=== PATIENT | male | born 2000 | race African-American/Black ===

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

== ENCOUNTER 2021-06-26 13:10 | Emergency (ER) | payer OTHER ==
[~2021-06-26] VITALS: Ht 175.3 cm; Wt 62.3 kg
[~2021-06-26 13:10] MED LIST: ACET-683 PO; NAPR-837 PO
--- NOTE | 2021-06-26 14:29 | REP ---
INDICATION: CP. COMPARISON: None. TECHNIQUE: Upright PA and lateral images of the chest were obtained. FINDINGS: The lungs are clear. The heart borders mediastinum and pulmonary vascular pattern are normal. The upper abdominal bowel gas pattern is normal. IMPRESSION: No evidence of acute cardiopulmonary pathology. <Electronically signed by Jr Gaviria > 06/26/21 1424
[2021-06-26 14:48] LABS: CK-MB VALUE MASS 1.4 NG/ML (<3.6); CPK CREATINE PHOSPHOKINASE 228 U/L (39-308); MB/CK RELATIVE INDEX 0.61 (< OR =4); TROPONIN I < 0.02 NG/ML (< 0.10)
[2021-06-26 15:14] VITALS: BP 116/72
--- NOTE | 2021-06-27 16:46 | ECGEPIP ---
[facility] - ED Test Date: 2021-06-26 Pat Name: CHAZ DAVILA Department: Room: - Gender: Male Research Assistant Member: ZOHREH : 2000 Requested By: Darya Barreto Order Number: [id number] Reading MD: Darya Barreto Measurements Intervals [place] Rate: 63 P: 60 RI: 192 QRS: 60 QRSD: 82 T: 32 QT: 386 QTc: 395 Interpretive Statements Normal sinus rhythm No prior Electronically Signed on 06-27-2021 16:46:09 EDT by Darya Barreto
== END 2021-06-26 15:12 | disposition home or self-care (01) ==
LOC: M ED 13:10
DX: R07.9 Chest pain, unspecified (principal); R06.02 Shortness of breath

== ENCOUNTER 2021-07-14 12:11 | Emergency (ER) | payer OTHER ==
[~2021-07-14] VITALS: Ht 175.3 cm; Wt 61.4 kg
--- NOTE | 2021-07-14 12:47 | REP ---
INDICATION: CHEST PAIN. COMPARISON: 06/26/2021. TECHNIQUE: Single portable AP view of the chest was performed. FINDINGS: There is no acute infiltrate or pulmonary edema. Lungs are clear. The heart is not significantly enlarged. The mediastinal silhouette is unremarkable. The visualized osseous structures are intact. IMPRESSION: No acute pulmonary disease. <Electronically signed by Agus Webber > 07/14/21 [id number]
[2021-07-14 12:59] LABS: BASO % 0.7 % (0.0-1.0); EOS % 0.3 % (0.0-3.0); HEMATOCRIT 45.7 % (42.0-52.0); HEMOGLOBIN 15.9 g/dl (13.5-17.5); LYMPH # 1.2 10^3/uL (1.5-5.0); LYMPH % 20.3 % (24.0-44.0); MEAN CORPUSCULAR HEMOGLOBIN 26.1 pg (27.0-33.0); MEAN CORPUSCULAR HGB CONC 34.8 g/dl (32.0-36.5); MONO # 0.6 10^3/uL (0.0-0.8); MONO % 10.4 % (2.0-8.0); NEUTROPHILS # 4.1 10^3/uL (1.5-8.5); NEUTROPHILS % 68.1 % (36.0-66.0); PLATELET COUNT, AUTOMATED 164 10^3/uL (150-450); RED BLOOD COUNT 6.09 10^6/uL (4.30-6.10)
[2021-07-14 13:36] LABS: BLOOD UREA NITROGEN 12 MG/DL (7-18); CALCIUM LEVEL 9.6 MG/DL (8.5-10.1); CARBON DIOXIDE LEVEL 28 MEQ/L (21-32); CHLORIDE LEVEL 107 MEQ/L (98-107); CK-MB VALUE MASS < 1.0 NG/ML (<3.6); CPK CREATINE PHOSPHOKINASE 179 U/L (39-308); CREATININE FOR GFR 0.96 MG/DL (0.70-1.30); GLOMERULAR FILTRATION RATE > 60.0 (>60); GLUCOSE, FASTING 83 MG/DL (70-100); MB/CK RELATIVE INDEX 0.56 (< OR =4); POTASSIUM SERUM 4.1 MEQ/L (3.5-5.1); SODIUM LEVEL 140 MEQ/L (136-145); TROPONIN I < 0.02 NG/ML (< 0.10)
[2021-07-14] MEDS ORDERED: ISOVUE-370 76% 100ML VIAL As Ordered ONE (13:44)
--- NOTE | 2021-07-14 16:14 | REP ---
INDICATION: rule out PE. COMPARISON: None. TECHNIQUE: Contrast dose: 75 ML of Isovue [address] technique: Helical scanning is acquired and overlapping 1.5 mm and contiguous 3 mm axial images are reformatted. In addition, maximum intensity projection and multiplanar re-formation images are generated in sagittal and coronal imaging projections. FINDINGS: There is good opacification in the pulmonary arterial tree. There is no evidence of vessel cut off or filling defect to suggest pulmonary embolus. Homogeneous opacity is seen in the thoracic aorta. There is no evidence of aneurysm or dissection. No hilar or mediastinal mass or adenopathy is seen. No pleural or pericardial effusion is noted. Lung window settings demonstrate clear with lung jackson. No infiltrate, mass, or pulmonary nodule is appreciated. In the upper abdomen, normal adrenal glands are seen. The visualized upper abdominal structures are unremarkable. No bony abnormality is seen. IMPRESSION: No CT evidence of pulmonary embolus. Negative CT pulmonary angiogram. <Electronically signed by Jeremiah Garcia > 07/14/21 [id number]
[2021-07-14 16:15] VITALS: BP 110/64
--- NOTE | 2021-07-15 00:14 | ECGEPIP ---
[facility] - ED Test Date: 2021-07-14 Pat Name: CHAZ DAVILA Department: Room: - Gender: Male Safety Intern: YASMINE : 2000 Requested By: TERESA Machado Order Number: [id number] Reading MD: Behzad Pwoers Measurements Intervals [place] Rate: 68 P: 60 VA: 190 QRS: 57 QRSD: 78 T: 43 QT: 364 QTc: 387 Interpretive Statements Normal sinus rhythm INCOMPLETE RIGHT BUNDLE BRANCH BLOCK SIMILAR TO 06/26/21 Electronically Signed on 07-15-2021 0:14:42 EDT by Behzad Powers
== END 2021-07-14 16:41 | disposition home or self-care (01) ==
LOC: M ED 12:11 → EDBD 12:11 → M ED 16:41
DX: R07.89 Other chest pain (principal); M54.9 Dorsalgia, unspecified; I45.19 Other right bundle-branch block
CPT/HCPCS: 36415; 71045; 71275; 80048; 82550; 82553; 84484; 85025; 87798; 93005; 93041; 94760; 99285; Q9967